=== PATIENT | male | born 1955 | race Caucasian/White ===

== ENCOUNTER 2025-03-05 06:23 | Day surgery (SDC) | payer MEDICARE, SELFPAY | END 2025-03-05 09:04 | disposition home or self-care (01) | LOC: GI 06:23 | PROVIDERS: ATTENDING PHYSICIAN Student in an Organized Health Care Education/Training Program | DX: Z12.11 Encounter for screening for malignant neoplasm of colon (principal); K64.4 Residual hemorrhoidal skin tags; K55.20 Angiodysplasia of colon without hemorrhage; K64.8 Other hemorrhoids; K57.30 Diverticulosis of large intestine without perforation or abscess without bleeding; D12.0 Benign neoplasm of cecum; K63.5 Polyp of colon; K62.1 Rectal polyp; Z86.0100 Personal history of colon polyps, unspecified | CPT/HCPCS: 45385; 88305 ==